=== PATIENT | female | born 1955 | race American Indian/Alaskan Native ===

== ENCOUNTER 2018-10-04 14:37 | Outpatient (CLI) | payer BC ==
--- NOTE | 2018-10-04 23:45 | XRay Report ---
PROCEDURE: XR CHEST ROUTINE 2V TECHNIQUE: PA and lateral chest radiographs were obtained. HISTORY: PREVIOUS PPD COMPARISONS: None. FINDINGS: Heart: Normal. Mediastinum/Vessels: Normal. Lungs/Pleural space: Normal. Bony thorax: No acute osseous abnormality. IMPRESSION: Normal examination. This document is electronically signed by Wandy Mendoza DO., October 04 2018 11:43:04 PM ET
== END 2018-10-04 14:38 | disposition home or self-care (01) ==
LOC: XRAY 14:37
PROVIDERS: ATTEND Internal Medicine
DX: R76.11 Nonspecific reaction to tuberculin skin test without active tuberculosis (principal)
CPT/HCPCS: 71046

== ENCOUNTER 2021-07-18 09:39 | Outpatient (CLI) | payer OTHER ==
--- NOTE | 2021-07-18 10:14 | XRay Report ---
CHEST 2 VIEWS INDICATION: SHORT OF BREATH, HYPERTENSION, DECREASED BREATH SOUND IN RT LUNG. COMPARISON: 10/04/2018 FINDINGS: Support devices: None. Heart: Mild cardiomegaly has developed. Lungs/pleura: Mild pulmonary venous congestion and moderate right pleural effusion compresses the rig ht lung base. No convincing pneumonia or pneumothorax. Additional findings: None. IMPRESSION: Mild CHF which appears to be new since 09/25/2018 exam. Signer Name: Antony Tao Jr, MD Signed: 07/18/2021 10:09 AM Workstation Name: [id number]
== END 2021-07-18 09:40 | disposition home or self-care (01) ==
LOC: XRAY 09:39
PROVIDERS: ATTEND Internal Medicine
DX: I11.0 Hypertensive heart disease with heart failure (principal); I50.9 Heart failure, unspecified
CPT/HCPCS: 71046

== ENCOUNTER 2021-08-18 10:54 | Outpatient (CLI) | payer OTHER ==
--- NOTE | 2021-08-18 14:53 | Ultrasound Report ---
ULTRASOUND THYROID INDICATION / CLINICAL INFORMATION: E05.20 GOITER. COMPARISON: None available. FINDINGS: RIGHT LOBE: Size (cm) = 6.6 x 2.9 x 2.9 cm. LEFT LOBE: Size (cm) = 7.4 x 2.7 x 3.2 cm. ISTHMUS: Thickness (cm) = 0.7 cm. APPEARANCE: Diffusely heterogeneous and hypervascular. SMALL NODULES < 1 cm: None. NODULES >= 1 cm or SUSPICIOUS FEATURES (up to 4): None. LYMPH NODES: No abnormal lymph nodes. PARATHYROID GLANDS: No abnormal parathyroid glands. ADDITIONAL FINDINGS: None. IMPRESSION: 1. Enlarged, diffusely heterogeneous and hypervascular thyroid bilaterally. 2. No suspicious thyroid nodules. ACR TI-RADS Thyroid Nodule Recommendations TI-RADS 1 (0 pts) -- BENIGN. - No Fine Needle Aspirate biopsy (FNA) or follow-up. TI-RADS 2 (1-2 pts) -- NOT SUSPICIOUS. - No FNA or follow-up. TI-RADS 3 (3 pts) -- MILDLY SUSPICIOUS. - >= 2.5 cm: FNA. - 1.5-2.4 cm: Follow up at 1, 3, 5 years. - < 1.5 cm: No follow up. TI-RADS 4 (4-6 pts) -- MODERATELY SUSPICIOUS. - >= 1.5 cm: FNA. - 1.0-1.4 cm: Follow up at 1, 2, 3, 5 years. - < 1.0 cm: No follow up. TI-RADS 5 (7+ pts) -- HIGHLY SUSPICIOUS. - >= 1.0 cm: FNA. - 0.5-0.9 cm: Follow annually for 5 years. - 0.5 cm: No follow up. REFERENCE: ACR Thyroid Imaging, Reporting and Data System (TI-RADS): White Paper of the ACR TI-RADS C ommittee. J AM Lisa Radiol 2017;14:587-595. NOTE: Nodules < 1 cm do not typically require follow-up or FNA unless there are suspicious features. NOTE: Nodule size maximum dimension determines whether a given lesion should be biopsied or followed. NOTE: If multiple nodules meet criteria for FNA, only the two (2) most suspicious nodules should be b iopsied. In addition, FNA of any suspicious cervical nodes should be biopsied. NOTE: Predominantly Cystic nodules and Spongiform nodules, composed predominantly (>50%) of small cys tic spaces, are considered benign (TI-RADS 1) regardless of other criteria. Scribed by: Josi العلي RDMS, RVT Scribed: 08/18/2021 1:40 PM I have reviewed the images, agree with this report, and edited this report as needed. Signer Name: Jacinto Wetzel MD Signed: 08/18/2021 2:49 PM Workstation Name: [id number]
== END 2021-08-18 10:55 | disposition home or self-care (01) ==
LOC: US 10:54
PROVIDERS: ATTEND Internal Medicine
DX: E05.20 Thyrotoxicosis with toxic multinodular goiter without thyrotoxic crisis or storm (principal)
CPT/HCPCS: 76536

== ENCOUNTER 2021-09-03 15:56 | Inpatient (IN) | payer OTHER ==
--- NOTE | 2021-09-03 17:35 | Emergency Department Report ---
HPI - General Chief Complaint: Dyspnea/Respdistress Time Seen by Provider: 09/03/21 17:15 - HPI HPI: MSE 3 The patient is a 66-year-old female present with a chief complaint of shortness of breath. The patient states for the past 2 to 3 weeks she is had worsening bilateral lower extremity pitting edema. Patient admits to dyspnea on exertion and 4 pillow orthopnea for the past 1-2 weeks. The patient states earlier today she had 10 to 15 minutes of substernal chest heaviness but has since resolved. Patient admits an occasional cough that is nonproductive. Patient denies history of fever. Patient states she has been vaccinated against Covid r eceiving 3 doses. The patient states she is never had a stress test or cardiac catheterization ED Past Medical Hx - Past Medical History Hx Hypertension: Yes Additional medical history: Hyperthyroidism - Surgical History Additional Surgical History: Abdominal abscess I&D - Family History Family history: no significant - Social History Smoking Status: Current Some Day Smoker (1/7 pack/day) Substance Use Type: None (Denies illicit drug use) ED Review of Systems ROS: Stated complaint: SOB Other details as noted in HPI Constitutional: denies: fever Eyes: denies: eye pain ENT: denies: throat pain Respiratory: cough, orthopnea, shortness of breath, SOB with exertion Cardiovascular: chest pain Endocrine: no symptoms reported Gastrointestinal: denies: abdominal pain Genitourinary: denies: dysuria Musculoskeletal: denies: back pain Skin: other (Bilateral lower extremity edema) Neurological: denies: headache Physical Exam - Physical Exam Vital Signs: Vital Signs 09/03/21 16:06 Temperature 98.1 F Pulse Rate 92 H Respiratory 20 Rate Blood Pressure 147/99 O2 Sat by Pulse 97 Oximetry Physical Exam: GENERAL: The patient is well-developed well-nourished female lying on stretcher not appearing to be in acute distress. [] HEENT: Normocephalic. Atraumatic. Extraocular motions are intact. Patient has moist mucous membranes. NECK: Supple. Trachea midline CHEST/LUNGS: Clear to auscultation. There is no respiratory distress noted. Faint crackles left base HEART/CARDIOVASCULAR: Regular. There is no tachycardia. There is no gallop rub or murmur. ABDOMEN: Abdomen is soft, nontender. Patient has normal bowel sounds. There is no abdominal distention. SKIN: There is no rash. There is 2-3+ bilateral lower extremity pitting edema. There is no diaphoresis. NEURO: The patient is awake, alert, and oriented. The patient is cooperative. The patient has no focal neurologic deficits. The patient has normal speech. GCS 15 MUSCULOSKELETAL: There is no evidence of acute injury. ED Course Vital Signs 09/03/21 16:06 Temperature 98.1 F Pulse Rate 92 H Respiratory 20 Rate Blood Pressure 147/99 O2 Sat by Pulse 97 Oximetry ED Medical Decision Making - Lab Data Result diagrams: 09/03/21 17:33 09/03/21 17:33 Laboratory Tests 09/03/21 09/03/21 09/03/21 17:33 17:33 17:33 WBC 5.5 RBC 5.57 H Hgb 15.5 H Hct 48.7 H MCV 87 MCH 28 MCHC 32 RDW 20.2 H Plt Count 130 L Lymph % (Auto) 36.9 H [place] % (Auto) 7.9 H Eos % (Auto) 1.6 Baso % (Auto) 1.2 Lymph # (Auto) 2.0 [place] # (Auto) 0.4 Eos # (Auto) 0.1 Baso # (Auto) 0.1 Seg Neutrophils % 52.4 Seg Neutrophils # 2.9 PT 14.2 INR 0.99 Sodium 135 L Potassium 4.0 Chloride 100.1 Carbon Dioxide 21 L Anion Gap 18 BUN 21 H Creatinine 1.0 Estimated GFR > 60 BUN/Creatinine Ratio 21 Glucose 96 Calcium 9.0 Magnesium 2.30 Total Bilirubin 1.10 AST 37 ALT 23 Alkaline Phosphatase 244 H Total Creatine Kinase 201 H CK-MB (CK-2) 3.5 CK-MB (CK-2) Rel Index 1.7 Troponin T < 0.010 NT-Pro-B Natriuret Pep 4285 H Total Protein 7.4 Albumin 3.9 Albumin/Globulin Ratio 1.1 - EKG Data -: EKG Interpreted by Me EKG shows normal: sinus rhythm Rate: normal (75 bpm) - EKG Data When compared to previous EKG there are: previous EKG unavailable Interpretation: nonspecific ST-T wave danii - Radiology Data Radiology results: report reviewed (Chest x-ray), image reviewed (Chest x-ray) interpreted by me: Chest x-ray-right pleural effusion. No pneumothorax. [facility] [address] [place] [address] XRay Report Signed Patient: GALILEO HORNE MR#: [id number] : 1955 Acct:[id number] Age/Sex: 66 / F ADM Date: 09/03/21 Loc: ED Attending Dr: Ordering Physician: BERTRAM IRVIN MD Date of Service: 09/03/21 Procedure(s): XR chest routine 2V Accession Number(s): [id number] cc: BERTRAM IRVIN MD Fluoro Time In Minutes: CHEST 2 VIEWS INDICATION / CLINICAL INFORMATION: Dyspnea on exertion, orthopnea. COMPARISON: 07/18/2021 FINDINGS: SUPPORT DEVICES: None. HEART / MEDIASTINUM: Cardiomegaly LUNGS / PLEURA: There is mild pulmonary vascular indistinctness. No pneumothorax. There is elevation the right hemidiaphragm relation to the left. There is accessory fissure along the right lung base. ADDITIONAL FINDINGS: No significant additional findings. IMPRESSION: 1. Mild pulmonary vascular indistinctness suggesting pulmonary edema. Signer Name: Arthur Finley DO Signed: 09/03/2021 6:27 PM Workstation Name: [id number] Transcribed By: YOUNG Dictated By: ARTHUR FINLEY DO Electronically Authenticated By: ARTHUR FINLEY DO Signed Date/Time: 09/03/211826 DD/ 25 TD/TT: Print Cancel - Differential Diagnosis CHF, ACS, pericarditis, myocarditis Critical care attestation.: If time is entered above; I have spent that time in minutes in the direct care of this critically ill patient, excluding procedure time. ED Disposition Clinical Impression: New onset of congestive heart failure, Dyspnea on exertion Disposition: ADMITTED INPATIENT Is pt being admited?: Yes Does the pt Need Aspirin: Yes Condition: Stable Time of Disposition: 19:16 (Hospitalist called (Dr. Gallego)) Heart Score - HEART Score History: Moderately suspicious EKG: Non-specific Age: > 65 Risk factors: 1-2 risk factors Troponin: < normal limit HEART Score: 5 - EKG Read Time Time EKG Completed: 18:59 EKG Read Time: 19:00
[2021-09-03 18:13] LABS: Basophils # (Auto) 0.1 K/mm3 (0.0-0.1); Basophils % (Auto) 1.2 % (0.0-1.8); Eosinophils # (Auto) 0.1 K/mm3 (0.0-0.4); Eosinophils % (Auto) 1.6 % (0.0-4.3); Hematocrit 48.7 % (30.3-42.9); Hemoglobin 15.5 gm/dl (10.1-14.3); Lymphocytes % (Auto) 36.9 % (13.4-35.0); Mean Corpuscular HGB Conc 32 % (30-34); Mean Corpuscular Volume 87 fl (79-97); Monocytes # (Auto) 0.4 K/mm3 (0.0-0.8); Monocytes % (Auto) 7.9 % (0.0-7.3); Platelet Count 130 K/mm3 (140-440); Red Blood Count 5.57 M/mm3 (3.65-5.03); Red Cell Distribution Width 20.2 % (13.2-15.2)
[2021-09-03 18:22] LABS: INR 0.99 (0.87-1.13)
--- NOTE | 2021-09-03 18:32 | XRay Report ---
CHEST 2 VIEWS INDICATION / CLINICAL INFORMATION: Dyspnea on exertion, orthopnea. COMPARISON: 07/18/2021 FINDINGS: SUPPORT DEVICES: None. HEART / MEDIASTINUM: Cardiomegaly LUNGS / PLEURA: There is mild pulmonary vascular indistinctness. No pneumothorax. There is elevation the right hemidiaphragm relation to the left. There is accessory fissure along the right lung base. ADDITIONAL FINDINGS: No significant additional findings. IMPRESSION: 1. Mild pulmonary vascular indistinctness suggesting pulmonary edema. Signer Name: Arthur Green DO Signed: 09/03/2021 6:27 PM Workstation Name: [id number]
[2021-09-03 18:45] LABS: Alanine Aminotransferase 23 units/L (7-56); Albumin 3.9 g/dL (3.9-5); BUN/Creatinine Ratio 21; Blood Urea Nitrogen 21 mg/dL (7-17); Creatine Kinase MB 3.5 ng/mL (0.0-4.0); Hemolysis Index 24
[2021-09-03] MEDS ORDERED: FUROSEMIDE 40 MG/4 ML INJ IV ONE (18:48)
[2021-09-03 18:57] LABS: Free T4 (Free Thyroxine) 0.1 ng/dL (0.76-1.46)
--- NOTE | 2021-09-03 19:51 | History and Physical Report ---
History of Present Illness Date of examination: 09/03/21 Date of admission: September 03, 2021 Chief complaint: Shortness of breath and bilateral lower leg extremity edema for 2 to 3 weeks. History of present illness: 66-year-old -[place] female with history of hypertension and hypothyroidism comes to the emergency room for increasing shortness of breath and bilateral lower extremity edema for the last 2 to 3 weeks. Patient admits to dyspnea on minimal exertion. Also has orthopnea. Also swelling of both lower extremities. This has been going on for last 2 to 3 weeks. Patient does not have any history of congestive heart failure. No paroxysmal nocturnal dyspnea. No chest pain. Patient never had a stress test or cardiac cath in the past. No fever or chills. Patient has been vaccinated against COVID and received all 3 doses. Patient has occasional cough which is nonproductive. - Past Medical History --Hypertension: Yes --Additional medical history: Hyperthyroidism - Surgical History --Additional Surgical History: Abdominal abscess I&D - Family History --Family history: no significant - Social History --Smoking Status: Current Some Day Smoker (1/7 pack/day) --Substance Use Type: None (Denies illicit drug use) --Review of Systems --ROS: ---Stated complaint: SOB ---Other details as noted in HPI --Constitutional: denies: fever --Eyes: denies: eye pain --ENT: denies: throat pain --Respiratory: cough, orthopnea, shortness of breath, SOB with exertion --Cardiovascular: chest pain --Endocrine: no symptoms reported --Gastrointestinal: denies: abdominal pain --Genitourinary: denies: dysuria --Musculoskeletal: denies: back pain --Skin: other (Bilateral lower extremity edema) --Neurological: denies: headache Medications and Allergies Allergies Allergy/AdvReac Type Severity Reaction Status Date / Time No Known Allergies Allergy Verified 09/03/21 20:07 Exam - Constitutional Vitals: Temp Pulse Resp BP Pulse Ox 98.1 F 92 H 20 147/99 97 09/03/21 16:06 09/03/21 16:06 09/03/21 16:06 09/03/21 16:06 09/03/21 16:06 General appearance: Present: no acute distress, well-nourished - EENT Eyes: Present: PERRL ENT: hearing intact, clear oral mucosa - Neck Neck: Present: supple, normal ROM - Respiratory Respiratory effort: normal Respiratory: bilateral: CTA, rales (Scattered) - Cardiovascular Heart rate: 78 Rhythm: regular Heart Sounds: Present: S1 & S2. Absent: rub, click - Extremities Extremities: pulses symmetrical, Full ROM Extremity abnormal: edema (3+ pedal edema) Peripheral Pulses: within normal limits - Abdominal General gastrointestinal: Present: soft, non-tender, non-distended, normal bowel sounds Female genitourinary: Present: normal - Rectal Rectal Exam: deferred - Integumentary Integumentary: Present: clear, warm, dry - Musculoskeletal Musculoskeletal: gait normal, strength equal bilaterally - Psychiatric Psychiatric: appropriate mood/affect, intact judgment & insight - Neurologic Neurologic: CNII-XII intact, moves all extremities HEART Score - HEART Score History: Moderately suspicious EKG: Non-specific Age: > 65 Risk factors: 1-2 risk factors Troponin: Troponin T < 0.010 ng/mL (0.00-0.029) 09/03/21 17:33 Troponin: < normal limit HEART Score: 5 - Critical Actions Critical Actions: 4-6 pts:12-16.6% risk of adverse cardiac event. Should be admitted Results - Labs CBC & Chem 7: 09/03/21 17:33 09/03/21 17:33 Labs: Laboratory Last Values WBC 5.5 K/mm3 (4.5-11.0) 09/03/21 17: RBC 5.57 M/mm3 (3.65-5.03) H 09/03/21 17:33 Hgb 15.5 gm/dl (10.1-14.3) H 09/03/21 17:33 Hct 48.7 % (30.3-42.9) H 09/03/21 17:33 MCV 87 fl (79-97) 09/03/21 17:33 MCH 28 pg (28-32) 09/03/21 17: MCHC 32 % (30-34) 09/03/21 17:33 RDW 20.2 % (13.2-15.2) H 09/03/21 17:33 Plt Count 130 K/mm3 (140-440) L 09/03/21 17:33 Lymph % (Auto) 36.9 % (13.4-35.0) H 09/03/21 17:33 [place] % (Auto) 7.9 % (0.0-7.3) H 09/03/21 17:33 Eos % (Auto) 1.6 % (0.0-4.3) 09/03/21 17:33 Baso % (Auto) 1.2 % (0.0-1.8) 09/03/21 17:33 Lymph # (Auto) 2.0 K/mm3 (1.2-5.4) 09/03/21 17:33 [place] # (Auto) 0.4 K/mm3 (0.0-0.8) 09/03/21 17: Eos # (Auto) 0.1 K/mm3 (0.0-0.4) 09/03/21 17: Baso # (Auto) 0.1 K/mm3 (0.0-0.1) 09/03/21 17:33 Seg Neutrophils % 52.4 % (40.0-70.0) 09/03/21 17: Seg Neutrophils # 2.9 K/mm3 (1.8-7.7) 09/03/21 17:33 PT 14.2 Sec. (12.2-14.9) 09/03/21 17:33 INR 0.99 (0.87-1.13) 09/03/21 17:33 Sodium 135 mmol/L (137-145) L 09/03/21 17:33 Potassium 4.0 mmol/L (3.6-5.0) 09/03/21 17: Chloride 100.1 mmol/L (98-107) 09/03/21 17:33 Carbon Dioxide 21 mmol/L (22-30) L 09/03/21 17:33 Anion Gap 18 mmol/L 09/03/21 17:33 BUN 21 mg/dL (7-17) H 09/03/21 17:33 Creatinine 1.0 mg/dL (0.6-1.2) 09/03/21 17:33 Estimated GFR > 60 ml/min 09/03/21 17:33 BUN/Creatinine Ratio 21 % 09/03/21 17:33 Glucose 96 mg/dL (65-100) 09/03/21 17:33 Calcium 9.0 mg/dL (8.4-10.2) 09/03/21 17:33 Magnesium 2.30 mg/dL (1.7-2.3) 09/03/21 17:33 Total Bilirubin 1.10 mg/dL (0.1-1.2) 09/03/21 17:33 AST 37 units/L (5-40) 09/03/21 17:33 ALT 23 units/L (7-56) 09/03/21 17:33 Alkaline Phosphatase 244 units/L (35-129) H 09/03/21 17:33 Total Creatine Kinase 201 units/L (30-135) H 09/03/21 17:33 CK-MB (CK-2) 3.5 ng/mL (0.0-4.0) 09/03/21 17: CK-MB (CK-2) Rel Index 1.7 (0-4) 09/03/21 17:33 Troponin T < 0.010 ng/mL (0.00-0.029) 09/03/21 17:33 NT-Pro-B Natriuret Pep 4285 pg/mL (0-900) H 09/03/21 17:33 Total Protein 7.4 g/dL (6.3-8.2) 09/03/21 17:33 Albumin 3.9 g/dL (3.9-5) 09/03/21 17:33 Albumin/Globulin Ratio 1.1 % 09/03/21 17:33 TSH 26.150 mlU/mL (0.270-4.200) H 09/03/21 17:33 Free T4 0.10 ng/dL (0.76-1.46) L 09/03/21 17:33 Short CBC 09/03/21 Range/Units 17:33 WBC 5.5 (4.5-11.0) K/mm3 Hgb 15.5 H (10.1-14.3) gm/dl Hct 48.7 H (30.3-42.9) % Plt Count 130 L (140-440) K/mm3 BMP 09/03/21 17:33 Sodium 135 L Potassium 4.0 Chloride 100.1 Carbon Dioxide 21 L BUN 21 H Creatinine 1.0 Glucose 96 Calcium 9.0 Cardiac Enzymes 09/03/21 Range/Units 17:33 Total Creatine Kinase 201 H (30-135) units/L CK-MB (CK-2) 3.5 (0.0-4.0) ng/mL Troponin T < 0.010 (0.00-0.029) ng/mL Liver Function 09/03/21 Range/Units 17:33 Total Bilirubin 1.10 (0.1-1.2) mg/dL AST 37 (5-40) units/L ALT 23 (7-56) units/L Alkaline Phosphatase 244 H (35-129) units/L Albumin 3.9 (3.9-5) g/dL - Imaging and Cardiology EKG: report reviewed Chest x-ray: report reviewed Imaging and Cardiology: - EKG Data -: EKG Interpreted by Me --EKG shows normal: sinus rhythm --Rate: normal (75 bpm) - EKG Data --When compared to previous EKG there are: previous EKG unavailable --Interpretation: nonspecific ST-T wave changes - Radiology Data --Radiology results: report reviewed (Chest x-ray), image reviewed (Chest x-ray) --Chest x-ray-right pleural effusion. No pneumothorax. Assessment and Plan Advance Directives: Yes (Full code) VTE prophylaxis?: Chemical Plan of care discussed with patient/family: Yes - Patient Problems (1) Acute exacerbation of CHF (congestive heart failure) Current Visit: Yes Status: Acute Qualifiers: Heart failure type: combined systolic and diastolic Qualified Code(s): I50.43 - Acute on chronic combined systolic (congestive) and diastolic (congestive) heart failure Plan to address problem: Patient has new onset CHF. BNP is 4285 Chest x-ray shows mild right pleural effusion and pulmonary vascular congestion. Clinical picture consistent with new onset CHF IV Lasix and potassium Daily weights Daily intake output Echocardiogram for ejection fraction and valve function Cardiology consult requested (2) HTN (hypertension) Current Visit: Yes Status: Chronic Qualifiers: Hypertension type: primary hypertension Qualified Code(s): I10 - Essential (primary) hypertension Plan to address problem: Losartan at 50 mg daily (3) Hypothyroidism Current Visit: Yes Status: Chronic Qualifiers: Hypothyroidism type: acquired Qualified Code(s): E03.9 - Hypothyroidism, unspecified Plan to address problem: Patient states that she has hypothyroidism and is on methimazole once a day Labs suggest that patient has hypothyroidism TSH is 26.15 Free T4 is 0.10 Patient initiated on Synthroid at 100 mcg/day Primary team to discuss her diagnosis of hypothyroidism tomorrow Patient does not have hyperthyroidism (4) Hyponatremia Current Visit: Yes Status: Acute Plan to address problem: Very mild at 135 No intervention at this point (5) DVT prophylaxis Current Visit: Yes Status: Acute Plan to address problem: On anticoagulation and GI prophylaxis (6) Advance care planning Current Visit: Yes Status: Acute Plan to address problem: Disease education conducted, care plan discussed, diagnosis discussed, prognosis discussed. Patient is full code. Patient acknowledges understanding and agreement with care plan. +30 minutes.
[2021-09-03] MEDS ORDERED: MORPHINE 2 MG/1 ML INJ IV PRN (20:02)
[2021-09-03] MEDS ORDERED: ONDANSETRON 4 MG/2 ML INJ IV PRN (20:02)
[2021-09-03] MEDS ORDERED: ACETAMINOPHEN 325 MG TAB PO PRN (20:02)
[2021-09-03] MEDS ORDERED: METOCLOPRAMIDE 10 MG/2 ML INJ IV PRN (20:02)
[2021-09-03] MEDS: POTASSIUM CHLORIDE ER 20 MEQ TAB PO SCH (20:54)
[2021-09-03] MEDS: HEPARIN 5,000 UNIT/1 ML VIAL SUB-Q SCH (22:00)
[2021-09-03] MEDS: FAMOTIDINE 20 MG TAB PO SCH (23:23)
[2021-09-04 05:51] LABS: Basophils # (Auto) 0.1 K/mm3 (0.0-0.1); Basophils % (Auto) 1.2 % (0.0-1.8); Eosinophils # (Auto) 0.2 K/mm3 (0.0-0.4); Eosinophils % (Auto) 3.8 % (0.0-4.3); Hematocrit 48.6 % (30.3-42.9); Hemoglobin 15.6 gm/dl (10.1-14.3); Lymphocytes # (Auto) 1.8 K/mm3 (1.2-5.4); Lymphocytes % (Auto) 38.1 % (13.4-35.0); Mean Corpuscular HGB Conc 32 % (30-34); Mean Corpuscular Volume 87 fl (79-97); Monocytes # (Auto) 0.7 K/mm3 (0.0-0.8); Monocytes % (Auto) 14.4 % (0.0-7.3); Red Blood Count 5.57 M/mm3 (3.65-5.03); Red Cell Distribution Width 19.9 % (13.2-15.2)
[2021-09-04 06:17] LABS: Albumin 3.7 g/dL (3.9-5); Calcium 8.5 mg/dL (8.4-10.2); Platelet Count 125 K/mm3 (140-440)
[2021-09-04] MEDS: FUROSEMIDE 40 MG/4 ML INJ IV SCH ×3 (06:35→17:31)
[2021-09-04] MEDS: LEVOTHYROXINE 100 MCG TAB PO SCH (07:41)
--- NOTE | 2021-09-04 09:39 | Electrocardiograph Report ---
[facility] Test Date: 2021-09-03 Test Time: 18:59:07 Pat Name: GALILEO HORNE Department: Room: A469 1 Gender: F Manager Technical Services: Dc MOORE RN : 1955 Requested By: BERTRAM IRVIN Order Number: [id number] Reading MD: Rin Pozo Measurements Intervals [place] Rate: 75 P: 180 HI: 218 QRS: -63 QRSD: 105 T: QT: 435 QTc: 488 Interpretive Statements Sinus or ectopic atrial rhythm Borderline prolonged HI interval Left atrial enlargement Left anterior fascicular block No previous ECG available for comparison Electronically Signed On 09-04-2021 9:39:11 EST by Rin Pozo
--- NOTE | 2021-09-04 09:55 | Progress Note ---
Assessment and Plan Assessment and plan: -- Acute versus acute on chronic CHF (congestive heart failure) Current Visit: Yes Status: Acute Unknown ejection fraction Patient has elevated BNP chest x-ray pulmonary edema Continue diuretics, low-dose beta-blockers Input output monitoring, low-sodium diet Fluid restriction Echocardiogram for LV function ejection fraction Cardiology consulted --History of HTN (hypertension) moderate control Current Visit: Yes Status: Chronic Continue losartan at 50 mg daily As needed oral hydralazine --H/o hyperthyroidism on methimazole Current Visit: Yes Status: Chronic However thyroid functions tests consistent with hypothyroidism Probably due to overcorrection Hold methimazole, closely monitor --Hypothyroidism Current Visit: Yes Status: Chronic Patient has history of hyperthyroidism on methimazole Probably overcorrection, will hold methimazole and closely monitor Patient needs to see labor/excavator upon discharge --Thrombocytopenia; Unknown etiology, closely monitor platelets Monitor for any evidence of bleeding -- Hyponatremia mild Current Visit: Yes Status: Acute Present on admission, resolved Sodium 135 -139 Closely monitor electrolytes --DVT prophylaxis Current Visit: Yes Status: Acute Subcu heparin --Advance care planning /additional 30 minutes Current Visit: Yes Status: Acute Disease education conducted, care plan discussed, diagnosis discussed, prognosis discussed. Thyroid function tests discussed with the patient in detail Advised her to see labor/excavator upon discharge Endocrinology service not available in the hospital Patient is full code. Patient acknowledges understanding and agreement with care plan. +30 minutes. Closely monitor the patient and adjust management as needed Plan of care reviewed with the patient and her nurse History Interval history: I seen and examined the patient at the bedside Patient's chart and medications reviewed Patient was admitted with worsening shortness of breath and worsening leg edema Time of my evaluation patient feels slightly short of breath Patient is slightly frustrated because she wants to go home to her pet dog lives alone Vital signs reviewed Hospitalist Physical - Constitutional Vitals: Temp Pulse Resp BP Pulse Ox 97.9 F 74 18 116/72 92 09/04/21 08:17 09/04/21 08:17 09/04/21 08:17 09/04/21 08:17 09/04/21 08:17 General appearance: Present: no acute distress, well-nourished - EENT Eyes: Present: PERRL, EOM intact - Neck Neck: Present: supple, normal ROM - Respiratory Respiratory: bilateral: diminished, rales, rhonchi, negative: wheezing - Cardiovascular Rhythm: regular Heart Sounds: Present: S1 & S2 - Extremities Extremities: no ischemia Extremity abnormal: edema (Bilateral edema) - Abdominal General gastrointestinal: soft, non-tender, non-distended, normal bowel sounds - Integumentary Integumentary: Present: clear - Psychiatric Psychiatric: appropriate mood/affect - Neurologic Neurologic: moves all extremities HEART Score - HEART Score EKG: Non-specific Age: > 65 Risk factors: 1-2 risk factors Troponin: Troponin T < 0.010 ng/mL (0.00-0.029) 09/03/21 17:33 Troponin: < normal limit - Critical Actions Critical Actions: 4-6 pts:12-16.6% risk of adverse cardiac event. Should be admitted Results - Labs CBC & Chem 7: 09/04/21 05:24 09/04/21 05:24 Labs: Laboratory Last Values WBC 4.8 K/mm3 (4.5-11.0) 09/04/21 05:24 RBC 5.57 M/mm3 (3.65-5.03) H 09/04/21 05:24 Hgb 15.6 gm/dl (10.1-14.3) H 09/04/21 05:24 Hct 48.6 % (30.3-42.9) H 09/04/21 05:24 MCV 87 fl (79-97) 09/04/21 05:24 MCH 28 pg (28-32) 09/04/21 05:24 MCHC 32 % (30-34) 09/04/21 05:24 RDW 19.9 % (13.2-15.2) H 09/04/21 05:24 Plt Count 125 K/mm3 (140-440) L 09/04/21 05:24 Lymph % (Auto) 38.1 % (13.4-35.0) H 09/04/21 05:24 [place] % (Auto) 14.4 % (0.0-7.3) H 09/04/21 05:24 Eos % (Auto) 3.8 % (0.0-4.3) 09/04/21 05:24 Baso % (Auto) 1.2 % (0.0-1.8) 09/04/21 05:24 Lymph # (Auto) 1.8 K/mm3 (1.2-5.4) 09/04/21 05:24 [place] # (Auto) 0.7 K/mm3 (0.0-0.8) 09/04/21 05:24 Eos # (Auto) 0.2 K/mm3 (0.0-0.4) 09/04/21 05:24 Baso # (Auto) 0.1 K/mm3 (0.0-0.1) 09/04/21 05:24 Seg Neutrophils % 42.5 % (40.0-70.0) 09/04/21 05:24 Seg Neutrophils # 2.0 K/mm3 (1.8-7.7) 09/04/21 05:24 PT 14.2 Sec. (12.2-14.9) 09/03/21 17:33 INR 0.99 (0.87-1.13) 09/03/21 17:33 Sodium 139 mmol/L (137-145) 09/04/21 05:24 Potassium 4.3 mmol/L (3.6-5.0) 09/04/21 05:24 Chloride 100.9 mmol/L (98-107) 09/04/21 05:24 Carbon Dioxide 26 mmol/L (22-30) 09/04/21 05:24 Anion Gap 16 mmol/L 09/04/21 05:24 BUN 23 mg/dL (7-17) H 09/04/21 05:24 Creatinine 1.1 mg/dL (0.6-1.2) 09/04/21 05:24 Estimated GFR 60 ml/min 09/04/21 05:24 BUN/Creatinine Ratio 21 % 09/04/21 05:24 Glucose 65 mg/dL (65-100) 09/04/21 05:24 Calcium 8.5 mg/dL (8.4-10.2) 09/04/21 05:24 Magnesium 2.30 mg/dL (1.7-2.3) 09/03/21 17:33 Total Bilirubin 1.20 mg/dL (0.1-1.2) 09/04/21 05:24 AST 32 units/L (5-40) 09/04/21 05:24 ALT 21 units/L (7-56) 09/04/21 05:24 Alkaline Phosphatase 234 units/L (35-129) H 09/04/21 05:24 Total Creatine Kinase 201 units/L (30-135) H 09/03/21 17:33 CK-MB (CK-2) 3.5 ng/mL (0.0-4.0) 09/03/21 17:33 CK-MB (CK-2) Rel Index 1.7 (0-4) 09/03/21 17:33 Troponin T < 0.010 ng/mL (0.00-0.029) 09/03/21 17:33 NT-Pro-B Natriuret Pep 4285 pg/mL (0-900) H 09/03/21 17:33 Total Protein 6.9 g/dL (6.3-8.2) 09/04/21 05:24 Albumin 3.7 g/dL (3.9-5) L 09/04/21 05:24 Albumin/Globulin Ratio 1.2 % 09/04/21 05:24 TSH 26.150 mlU/mL (0.270-4.200) H 09/03/21 17:33 Free T4 0.10 ng/dL (0.76-1.46) L 09/03/21 17:33 Thakkar/IV: Voiding Method Toilet Active Medications - Current Medications Current Medications: Generic Name Dose Route Start Last Admin Trade Name Freq PRN Reason Stop Dose Admin Acetaminophen 650 mg 09/03/21 20:02 Acetaminophen 325 Mg Tab PO Q4H PRN Pain MILD(1-3)/Fever >100.5/EARLY Famotidine 20 mg 09/03/21 22:00 09/03/21 23:23 Famotidine 20 Mg Tab PO 20 mg BID BISI Administration Furosemide 40 mg 09/04/21 06:00 09/04/21 06:35 Furosemide 40 Mg/4 Ml Inj IV 40 mg 0600,1800 BISI Administration Heparin Sodium (Porcine) 5,000 unit 09/03/21 22:00 09/03/21 22:00 Heparin 5,000 Unit/1 Ml Vial SUB-Q 5,000 unit Q12HR BISI Administration Levothyroxine Sodium 100 mcg 09/04/21 08:00 09/04/21 07:41 Levothyroxine 100 Mcg Tab PO 100 mcg DAILY@0600 BISI Administration Losartan Potassium 50 mg 09/04/21 10:00 Losartan 50 Mg Tab PO QDAY BISI Metoclopramide HCl 10 mg 09/03/21 20:02 Metoclopramide 10 Mg/2 Ml Inj IV Q6H PRN Nausea And Vomiting Morphine Sulfate 2 mg 09/03/21 20:02 Morphine 2 Mg/1 Ml Inj IV Q4H PRN Pain, Moderate (4-6) Ondansetron HCl 4 mg 09/03/21 20:02 Ondansetron 4 Mg/2 Ml Inj IV Q8H PRN Nausea And Vomiting Oxycodone/Acetaminophen 1 tab 09/03/21 20:02 Oxycodone /Acetaminophen 5-325mg Tab PO Q6H PRN Pain, Moderate (4-6) Potassium Chloride 20 meq 09/03/21 21:00 09/03/21 20:54 Potassium Chloride Er 20 Meq Tab PO 20 meq Q12H BISI Administration Sodium Chloride 10 ml 09/03/21 22:00 09/03/21 23:24 Sodium Chloride 0.9% 10 Ml Flush Syringe IV 10 ml BID BISI Administration Sodium Chloride 10 ml 09/03/21 20:02 Sodium Chloride 0.9% 10 Ml Flush Syringe IV PRN PRN LINE FLUSH
[2021-09-04] MEDS: FAMOTIDINE 20 MG TAB PO SCH ×2 (10:49→23:25)
[2021-09-04] MEDS: LOSARTAN 50 MG TAB PO SCH (10:49)
[2021-09-04] MEDS: POTASSIUM CHLORIDE ER 20 MEQ TAB PO SCH ×2 (10:49→23:25)
[2021-09-04] MEDS: HEPARIN 5,000 UNIT/1 ML VIAL SUB-Q SCH ×2 (10:50→22:00)
--- NOTE | 2021-09-04 14:50 | Consultation ---
History of Present Illness Consult date: 09/04/21 Consult reason: shortness of breath History of present illness: Patient is a 60-year-old woman admitted to the hospital with 2 weeks of shortness of breath and bilateral lower extremity edema. She has no chest pain, no prior cardiac history or significant prior cardiac work-up. Her ECG shows a normal sinus rhythm, left axis deviation and poor R wave progression, but no acute ST or T wave changes. Chest x-ray is abnormal for a small to moderate sized right pleural effusion, but otherwise no interstitial edema. The cardiac silhouette is normal in size. The most significant finding on laboratory exam was an elevated TSH of 26, consistent with significant hypothyroidism. The patient gives a history of HYPERthyroidism, managed by her PCP over the past year with methimazole oral therapy. She did not have thyroid ablation. She states that her thyroid profile normalized on methimazole and the treatment was continued on to her current presentation. Comorbidities include chronic hypertension. Patient is currently comfortable on bedrest, no chest pain, no acute distress. She has 2+ bilateral nonpitting edema of the lower extremities. Past History Past Medical History: hypertension, other (Hyperthyroid disease) Medications and Allergies Allergies Allergy/AdvReac Type Severity Reaction Status Date / Time No Known Allergies Allergy Verified 09/03/21 20:07 Home Medications Medication Instructions Recorded Confirmed Last Taken Type Triamterene-Hctz 37.5-25 mg Cp 1 tab PO QDAY 09/04/21 09/04/21 Unknown History methIMAzole [Methimazole] 1 tab PO DAILY 09/04/21 09/04/21 Unknown History Active Meds: Active Medications Acetaminophen (Acetaminophen 325 Mg Tab) 650 mg PO Q4H PRN PRN Reason: Pain MILD(1-3)/Fever >100.5/EARLY Last Admin: 09/04/21 10:51 Dose: 650 mg Famotidine (Famotidine 20 Mg Tab) 20 mg PO BID [facility] Last Admin: 09/04/21 10:49 Dose: 20 mg Furosemide (Furosemide 40 Mg/4 Ml Inj) 40 mg IV 0600,1800 [facility] Last Admin: 09/04/21 06:35 Dose: 40 mg Heparin Sodium (Porcine) (Heparin 5,000 Unit/1 Ml Vial) 5,000 unit SUB-Q Q12HR [facility] Last Admin: 09/04/21 10:50 Dose: 5,000 unit Levothyroxine Sodium (Levothyroxine 100 Mcg Tab) 100 mcg PO DAILY@0600 [facility] Last Admin: 09/04/21 07:41 Dose: 100 mcg Losartan Potassium (Losartan 50 Mg Tab) 50 mg PO QDAY [facility] Last Admin: 09/04/21 10:49 Dose: 50 mg Metoclopramide HCl (Metoclopramide 10 Mg/2 Ml Inj) 10 mg IV Q6H PRN PRN Reason: Nausea And Vomiting Morphine Sulfate (Morphine 2 Mg/1 Ml Inj) 2 mg IV Q4H PRN PRN Reason: Pain, Moderate (4-6) Ondansetron HCl (Ondansetron 4 Mg/2 Ml Inj) 4 mg IV Q8H PRN PRN Reason: Nausea And Vomiting Oxycodone/Acetaminophen (Oxycodone /Acetaminophen 5-325mg Tab) 1 tab PO Q6H PRN PRN Reason: Pain, Moderate (4-6) Potassium Chloride (Potassium Chloride Er 20 Meq Tab) 20 meq PO Q12H [facility] Last Admin: 09/04/21 10:49 Dose: 20 meq Sodium Chloride (Sodium Chloride 0.9% 10 Ml Flush Syringe) 10 ml IV BID [facility] Last Admin: 09/04/21 10:50 Dose: 10 ml Sodium Chloride (Sodium Chloride 0.9% 10 Ml Flush Syringe) 10 ml IV PRN PRN PRN Reason: LINE FLUSH Review of Systems Cardiovascular: edema, shortness of breath, no chest pain, no orthopnea, no palpitations, no rapid/irregular heart beat, no syncope, no lightheadedness Physical Examination Vital Signs Temp Pulse Resp BP Pulse Ox 98.1 F 92 H 20 147/99 97 09/03/21 16:06 09/03/21 16:06 09/03/21 16:06 09/03/21 16:06 09/03/21 16:06 General appearance: no acute distress HEENT: Positive: PERRL Neck: Positive: neck supple Cardiac: Positive: Reg Rate and Rhythm Lungs: Positive: Decreased Breath Sounds Neuro: Positive: Grossly Intact Abdomen: Positive: Soft Female genitourinary: deferred Skin: Positive: Clear Extremities: Present: +2 Edema (Bilateral 2+ nonpitting edema of lower extremities) Results 09/04/21 05:24 09/04/21 05:24 Cardiac Enzymes 09/03/21 09/04/21 Range/Units 17:33 05:24 AST 37 32 (5-40) units/L CK-MB (CK-2) 3.5 (0.0-4.0) ng/mL Coagulation 09/03/21 Range/Units 17:33 PT 14.2 (12.2-14.9) Sec. INR 0.99 (0.87-1.13) CBC 09/03/21 09/04/21 Range/Units 17:33 05:24 WBC 5.5 4.8 (4.5-11.0) K/mm3 RBC 5.57 H 5.57 H (3.65-5.03) M/mm3 Hgb 15.5 H 15.6 H (10.1-14.3) gm/dl Hct 48.7 H 48.6 H (30.3-42.9) % Plt Count 130 L 125 L (140-440) K/mm3 Lymph # (Auto) 2.0 1.8 (1.2-5.4) K/mm3 [place] # (Auto) 0.4 0.7 (0.0-0.8) K/mm3 Eos # (Auto) 0.1 0.2 (0.0-0.4) K/mm3 Baso # (Auto) 0.1 0.1 (0.0-0.1) K/mm3 Comprehensive Metabolic Panel 09/03/21 09/04/21 Range/Units 17:33 05:24 Sodium 135 L 139 (137-145) mmol/L Potassium 4.0 4.3 (3.6-5.0) mmol/L Chloride 100.1 100.9 (98-107) mmol/L Carbon Dioxide 21 L 26 (22-30) mmol/L BUN 21 H 23 H (7-17) mg/dL Creatinine 1.0 1.1 (0.6-1.2) mg/dL Glucose 96 65 (65-100) mg/dL Calcium 9.0 8.5 (8.4-10.2) mg/dL AST 37 32 (5-40) units/L ALT 23 21 (7-56) units/L Alkaline Phosphatase 244 H 234 H (35-129) units/L Total Protein 7.4 6.9 (6.3-8.2) g/dL Albumin 3.9 3.7 L (3.9-5) g/dL EKG interpretations - Telemetry EKG Rhythm: Sinus Rhythm Assessment and Plan - Patient Problems (1) Non-pitting edema Current Visit: Yes Status: Acute Plan to address problem: Patient is bilateral nonpitting edema appears likely noncardiogenic, instead likely related to her thyroid disease. Patient was initially hyperthyroid and has been on methimazole treatment, current numbers show significant hypothyroid ism. Will defer to internal medicine and endocrine for management of her thyroid disease. We will order an echocardiogram for left ventricular function and valvular function assessment. (2) Pleural effusion, right Current Visit: Yes Status: Acute Plan to address problem: Patient has a right pleural effusion, etiology is uncertain. There is no interstitial edema and cardiac silhouette appears normal in size. I will defer management to pulmonary.
[2021-09-04] MEDS: oxyCODONE /ACETAMINOPHEN 5-325MG TAB PO PRN (23:31)
[2021-09-05] MEDS: FUROSEMIDE 40 MG/4 ML INJ IV SCH ×2 (05:53→19:51)
[2021-09-05] MEDS: LEVOTHYROXINE 100 MCG TAB PO SCH (05:53)
[2021-09-05] MEDS: oxyCODONE /ACETAMINOPHEN 5-325MG TAB PO PRN ×2 (05:53→21:57)
[2021-09-05 05:54] LABS: Calcium 8.4 mg/dL (8.4-10.2)
[2021-09-05] MEDS ORDERED: POTASSIUM CHLORIDE ER 20 MEQ TAB PO SCH (10:00)
[2021-09-05] MEDS: HEPARIN 5,000 UNIT/1 ML VIAL SUB-Q SCH ×2 (10:50→21:54)
--- NOTE | 2021-09-05 11:38 | Progress Note ---
Assessment and Plan - Patient Problems (1) Dilated cardiomyopathy Current Visit: Yes Status: Acute Plan to address problem: New finding of a severe four-chamber dilated cardiomyopathy, left ventricular ejection fraction 20 to 25%. (2) Non-pitting edema Current Visit: Yes Status: Acute Plan to address problem: Patient's echocardiogram shows a four-chamber dilated cardiomyopathy. We will commence guideline directed medical therapy for systolic left ventricular dysfunction. (3) Pleural effusion, right Current Visit: Yes Status: Acute Plan to address problem: Patient has a right pleural effusion, etiology is uncertain, may possibly be cardiogenic although unilateral. I will defer management to pulmonary to advise on mechanical drainage. Subjective Date of service: 09/05/21 Principal diagnosis: Edema Interval history: Patient had an echocardiogram today that showed a severe, four-chamber dilated cardiomyopathy. Chronicity of her cardiomyopathy is unknown. Objective Vital Signs Temp Pulse Resp BP Pulse Ox 09/05/21 08:34 97.9 F 72 16 117/72 93 09/05/21 04:46 98.6 F 68 16 112/76 96 09/04/21 22:44 98.2 F 60 18 109/68 96 09/04/21 22:00 93 09/04/21 19:35 97.9 F 69 18 102/56 93 09/04/21 15:55 98.7 F 72 18 115/67 95 09/04/21 12:00 65 97 - Physical Examination General: No Apparent Distress HEENT: Positive: PERRL Neck: Positive: neck supple Cardiac: Positive: Reg Rate and Rhythm Lungs: Positive: Decreased Breath Sounds Neuro: Positive: Grossly Intact Abdomen: Positive: Soft Skin: Positive: Clear Extremities: Present: +2 Edema (Bilateral 2+ nonpitting edema of lower extremities) - Labs and Meds Comprehensive Metabolic Panel 09/05/21 Range/Units 04:47 Sodium 141 (137-145) mmol/L Potassium 4.7 (3.6-5.0) mmol/L Chloride 101.1 (98-107) mmol/L Carbon Dioxide 28 (22-30) mmol/L BUN 27 H (7-17) mg/dL Creatinine 1.3 H (0.6-1.2) mg/dL Glucose 66 (65-100) mg/dL Calcium 8.4 (8.4-10.2) mg/dL - Imaging and Cardiology EKG: report reviewed
--- NOTE | 2021-09-05 12:43 | Progress Note ---
Assessment and Plan Assessment and plan: -- Acute systolic CHF (congestive heart failure) EF 20 to 25% Current Visit: Yes Status: Acute Echo [09/05/2021 ] EF 20 to 25% Patient has elevated BNP chest x-ray pulmonary edema Continue diuretics, low-dose beta-blockers Input output monitoring, low-sodium diet, Fluid restriction Cardiology following, recommend pulmonary consult --Right pleural effusion: New onset systolic congestive heart failure 20-25% EF Cardiology following, recommend pulmonary consult Discussed with on-call pulmonary Dr. Guan --History of HTN (hypertension) moderate control Current Visit: Yes Status: Chronic Continue losartan at 50 mg daily As needed oral hydralazine --H/o hyperthyroidism on methimazole Current Visit: Yes Status: Chronic However thyroid functions tests consistent with hypothyroidism Probably due to overcorrection Hold methimazole, closely monitor --Hypothyroidism Current Visit: Yes Status: Chronic Patient has history of hyperthyroidism on methimazole Probably overcorrection, will hold methimazole and closely monitor Patient needs to see mortgage loan processor upon discharge --Thrombocytopenia; Unknown etiology, closely monitor platelets Monitor for any evidence of bleeding -- Hyponatremia mild Current Visit: Yes Status: Acute Present on admission, resolved Sodium 135 -139 Closely monitor electrolytes --DVT prophylaxis Current Visit: Yes Status: Acute Subcu heparin --Advance care planning /additional 30 minutes Current Visit: Yes Status: Acute Disease education conducted, care plan discussed, diagnosis discussed, prognosis discussed. Thyroid function tests discussed with the patient in detail Advised her to see mortgage loan processor upon discharge Endocrinology service not available in the hospital Patient is full code. Patient acknowledges understanding and agreement with care plan. +30 minutes. Closely monitor the patient and adjust management as needed Plan of care reviewed with the patient and her nurse History Interval history: I seen and examined the patient at the bedside Patient's chart and medications reviewed Patient came back from the echo lab today Feels slightly better, Denies chest pain shortness of breath and lower extremity edema slightly improved Hospitalist Physical - Constitutional Vitals: Temp Pulse Resp BP Pulse Ox 97.9 F 72 16 117/72 93 09/05/21 08:34 09/05/21 08:34 09/05/21 08:34 09/05/21 08:34 09/05/21 08:34 General appearance: Present: no acute distress, well-nourished - EENT Eyes: Present: PERRL, EOM intact - Neck Neck: Present: supple, normal ROM - Respiratory Respiratory: bilateral: diminished, rales, negative: rhonchi, wheezing - Cardiovascular Rhythm: regular Heart Sounds: Present: S1 & S2 - Extremities Extremities: no ischemia, No edema - Abdominal General gastrointestinal: soft, non-tender, non-distended, normal bowel sounds - Integumentary Integumentary: Present: clear, warm - Psychiatric Psychiatric: appropriate mood/affect, cooperative - Neurologic Neurologic: CNII-XII intact, moves all extremities HEART Score - HEART Score EKG: Non-specific Age: > 65 Risk factors: 1-2 risk factors Troponin: Troponin T < 0.010 ng/mL (0.00-0.029) 09/03/21 17:33 Troponin: < normal limit - Critical Actions Critical Actions: 4-6 pts:12-16.6% risk of adverse cardiac event. Should be admitted Results - Labs CBC & Chem 7: 09/04/21 05:24 09/05/21 04:47 Labs: Laboratory Last Values WBC 4.8 K/mm3 (4.5-11.0) 09/04/21 05:24 RBC 5.57 M/mm3 (3.65-5.03) H 09/04/21 05:24 Hgb 15.6 gm/dl (10.1-14.3) H 09/04/21 05:24 Hct 48.6 % (30.3-42.9) H 09/04/21 05:24 MCV 87 fl (79-97) 09/04/21 05:24 MCH 28 pg (28-32) 09/04/21 05:24 MCHC 32 % (30-34) 09/04/21 05:24 RDW 19.9 % (13.2-15.2) H 09/04/21 05:24 Plt Count 125 K/mm3 (140-440) L 09/04/21 05:24 Lymph % (Auto) 38.1 % (13.4-35.0) H 09/04/21 05:24 [place] % (Auto) 14.4 % (0.0-7.3) H 09/04/21 05:24 Eos % (Auto) 3.8 % (0.0-4.3) 09/04/21 05:24 Baso % (Auto) 1.2 % (0.0-1.8) 09/04/21 05:24 Lymph # (Auto) 1.8 K/mm3 (1.2-5.4) 09/04/21 05:24 [place] # (Auto) 0.7 K/mm3 (0.0-0.8) 09/04/21 05:24 Eos # (Auto) 0.2 K/mm3 (0.0-0.4) 09/04/21 05:24 Baso # (Auto) 0.1 K/mm3 (0.0-0.1) 09/04/21 05:24 Seg Neutrophils % 42.5 % (40.0-70.0) 09/04/21 05:24 Seg Neutrophils # 2.0 K/mm3 (1.8-7.7) 09/04/21 05:24 PT 14.2 Sec. (12.2-14.9) 09/03/21 17:33 INR 0.99 (0.87-1.13) 09/03/21 17:33 Sodium 141 mmol/L (137-145) 09/05/21 04:47 Potassium 4.7 mmol/L (3.6-5.0) 09/05/21 04:47 Chloride 101.1 mmol/L (98-107) 09/05/21 04:47 Carbon Dioxide 28 mmol/L (22-30) 09/05/21 04:47 Anion Gap 17 mmol/L 09/05/21 04:47 BUN 27 mg/dL (7-17) H 09/05/21 04:47 Creatinine 1.3 mg/dL (0.6-1.2) H 09/05/21 04:47 Estimated GFR 49 ml/min 09/05/21 04:47 BUN/Creatinine Ratio 21 % 09/05/21 04:47 Glucose 66 mg/dL (65-100) 09/05/21 04:47 Calcium 8.4 mg/dL (8.4-10.2) 09/05/21 04:47 Magnesium 2.30 mg/dL (1.7-2.3) 09/03/21 17:33 Total Bilirubin 1.20 mg/dL (0.1-1.2) 09/04/21 05:24 AST 32 units/L (5-40) 09/04/21 05:24 ALT 21 units/L (7-56) 09/04/21 05:24 Alkaline Phosphatase 234 units/L (35-129) H 09/04/21 05:24 Total Creatine Kinase 201 units/L (30-135) H 09/03/21 17:33 CK-MB (CK-2) 3.5 ng/mL (0.0-4.0) 09/03/21 17:33 CK-MB (CK-2) Rel Index 1.7 (0-4) 09/03/21 17:33 Troponin T < 0.010 ng/mL (0.00-0.029) 09/03/21 17:33 NT-Pro-B Natriuret Pep 4285 pg/mL (0-900) H 09/03/21 17:33 Total Protein 6.9 g/dL (6.3-8.2) 09/04/21 05:24 Albumin 3.7 g/dL (3.9-5) L 09/04/21 05:24 Albumin/Globulin Ratio 1.2 % 09/04/21 05:24 TSH 26.150 mlU/mL (0.270-4.200) H 09/03/21 17:33 Free T4 0.10 ng/dL (0.76-1.46) L 09/03/21 17:33 Thakkar/IV: Voiding Method Toilet Active Medications - Current Medications Current Medications: Generic Name Dose Route Start Last Admin Trade Name Freq PRN Reason Stop Dose Admin Acetaminophen 650 mg 09/03/21 20:02 09/04/21 10:51 Acetaminophen 325 Mg Tab PO 650 mg Q4H PRN Administration Pain MILD(1-3)/Fever >100.5/EARLY Carvedilol 3.125 mg 09/05/21 12:00 Carvedilol 3.125 Mg Tab PO BID BISI Famotidine 20 mg 09/03/21 22:00 09/04/21 23:25 Famotidine 20 Mg Tab PO 20 mg BID BISI Administration Furosemide 40 mg 09/04/21 06:00 09/05/21 05:53 Furosemide 40 Mg/4 Ml Inj IV 40 mg 0600,1800 BISI Administration Heparin Sodium (Porcine) 5,000 unit 09/03/21 22:00 09/04/21 22:00 Heparin 5,000 Unit/1 Ml Vial SUB-Q 5,000 unit Q12HR BISI Administration Levothyroxine Sodium 100 mcg 09/04/21 08:00 09/05/21 05:53 Levothyroxine 100 Mcg Tab PO 100 mcg DAILY@0600 BISI Administration Losartan Potassium 50 mg 09/04/21 10:00 09/04/21 10:49 Losartan 50 Mg Tab PO 50 mg QDAY BISI Administration Metoclopramide HCl 10 mg 09/03/21 20:02 Metoclopramide 10 Mg/2 Ml Inj IV Q6H PRN Nausea And Vomiting Morphine Sulfate 2 mg 09/03/21 20:02 Morphine 2 Mg/1 Ml Inj IV Q4H PRN Pain, Moderate (4-6) Ondansetron HCl 4 mg 09/03/21 20:02 Ondansetron 4 Mg/2 Ml Inj IV Q8H PRN Nausea And Vomiting Oxycodone/Acetaminophen 1 tab 09/03/21 20:02 09/05/21 05:53 Oxycodone /Acetaminophen 5-325mg Tab PO 1 tab Q6H PRN Administration Pain, Moderate (4-6) Sodium Chloride 10 ml 09/03/21 22:00 09/04/21 23:26 Sodium Chloride 0.9% 10 Ml Flush Syringe IV 10 ml BID BISI Administration Sodium Chloride 10 ml 09/03/21 20:02 Sodium Chloride 0.9% 10 Ml Flush Syringe IV PRN PRN LINE FLUSH Spironolactone 25 mg 09/05/21 12:00 Spironolactone 25 Mg Tab PO QDAY [facility]
[2021-09-05] MEDS: SPIRONOLACTONE 25 MG TAB PO SCH (15:52)
[2021-09-05] MEDS: FAMOTIDINE 20 MG TAB PO SCH ×2 (15:53→21:54)
[2021-09-05] MEDS: LOSARTAN 50 MG TAB PO SCH (15:53)
[2021-09-05] MEDS: carvediloL 3.125 MG TAB PO SCH ×2 (15:54→21:54)
--- NOTE | 2021-09-05 19:29 | Progress Note ---
Assessment and Plan Assessment and plan: -- Acute systolic CHF (congestive heart failure) EF 20 to 25% Current Visit: Yes Status: Acute Echo [09/05/2021 ] EF 20 to 25% Patient has elevated BNP chest x-ray pulmonary edema Continue diuretics, low-dose beta-blockers Input output monitoring, low-sodium diet, Fluid restriction Cardiology following, recommend pulmonary consult --Right pleural effusion: New onset systolic congestive heart failure 20-25% EF Cardiology following, recommend pulmonary consult Discussed with on-call pulmonary Dr. Guan --History of HTN (hypertension) moderate control Current Visit: Yes Status: Chronic Continue losartan at 50 mg daily As needed oral hydralazine --H/o hyperthyroidism on methimazole Current Visit: Yes Status: Chronic However thyroid functions tests consistent with hypothyroidism Probably due to overcorrection Hold methimazole, closely monitor --Hypothyroidism Current Visit: Yes Status: Chronic Patient has history of hyperthyroidism on methimazole Probably overcorrection, will hold methimazole and closely monitor Patient needs to see finishing trimmer upon discharge --Thrombocytopenia; Unknown etiology, closely monitor platelets Monitor for any evidence of bleeding -- Hyponatremia mild Current Visit: Yes Status: Acute Present on admission, resolved Sodium 135 -139 Closely monitor electrolytes --DVT prophylaxis Current Visit: Yes Status: Acute Subcu heparin --Advance care planning /additional 30 minutes Current Visit: Yes Status: Acute Disease education conducted, care plan discussed, diagnosis discussed, prognosis discussed. Thyroid function tests discussed with the patient in detail Advised her to see finishing trimmer upon discharge Endocrinology service not available in the hospital Patient is full code. Patient acknowledges understanding and agreement with care plan. +30 minutes. Closely monitor the patient and adjust management as needed Plan of care reviewed with the patient and her nurse Hospitalist Physical - Constitutional Vitals: Temp Pulse Resp BP Pulse Ox 97.9 F 72 16 117/72 93 09/05/21 08:34 09/05/21 08:34 09/05/21 08:34 09/05/21 08:34 09/05/21 08:34 General appearance: Present: no acute distress, well-nourished HEART Score - HEART Score EKG: Non-specific Age: > 65 Risk factors: 1-2 risk factors Troponin: Troponin T < 0.010 ng/mL (0.00-0.029) 09/03/21 17:33 Troponin: < normal limit - Critical Actions Critical Actions: 4-6 pts:12-16.6% risk of adverse cardiac event. Should be admitted Results - Labs CBC & Chem 7: 09/04/21 05:24 09/05/21 04:47 Labs: Laboratory Last Values WBC 4.8 K/mm3 (4.5-11.0) 09/04/21 05:24 RBC 5.57 M/mm3 (3.65-5.03) H 09/04/21 05:24 Hgb 15.6 gm/dl (10.1-14.3) H 09/04/21 05:24 Hct 48.6 % (30.3-42.9) H 09/04/21 05:24 MCV 87 fl (79-97) 09/04/21 05:24 MCH 28 pg (28-32) 09/04/21 05:24 MCHC 32 % (30-34) 09/04/21 05:24 RDW 19.9 % (13.2-15.2) H 09/04/21 05:24 Plt Count 125 K/mm3 (140-440) L 09/04/21 05:24 Lymph % (Auto) 38.1 % (13.4-35.0) H 09/04/21 05:24 Preston % (Auto) 14.4 % (0.0-7.3) H 09/04/21 05:24 Eos % (Auto) 3.8 % (0.0-4.3) 09/04/21 05:24 Baso % (Auto) 1.2 % (0.0-1.8) 09/04/21 05:24 Lymph # (Auto) 1.8 K/mm3 (1.2-5.4) 09/04/21 05:24 Preston # (Auto) 0.7 K/mm3 (0.0-0.8) 09/04/21 05:24 Eos # (Auto) 0.2 K/mm3 (0.0-0.4) 09/04/21 05:24 Baso # (Auto) 0.1 K/mm3 (0.0-0.1) 09/04/21 05:24 Seg Neutrophils % 42.5 % (40.0-70.0) 09/04/21 05:24 Seg Neutrophils # 2.0 K/mm3 (1.8-7.7) 09/04/21 05:24 PT 14.2 Sec. (12.2-14.9) 09/03/21 17:33 INR 0.99 (0.87-1.13) 09/03/21 17:33 Sodium 141 mmol/L (137-145) 09/05/21 04:47 Potassium 4.7 mmol/L (3.6-5.0) 09/05/21 04:47 Chloride 101.1 mmol/L (98-107) 09/05/21 04:47 Carbon Dioxide 28 mmol/L (22-30) 09/05/21 04:47 Anion Gap 17 mmol/L 09/05/21 04:47 BUN 27 mg/dL (7-17) H 09/05/21 04:47 Creatinine 1.3 mg/dL (0.6-1.2) H 09/05/21 04:47 Estimated GFR 49 ml/min 09/05/21 04:47 BUN/Creatinine Ratio 21 % 09/05/21 04:47 Glucose 66 mg/dL (65-100) 09/05/21 04:47 Calcium 8.4 mg/dL (8.4-10.2) 09/05/21 04:47 Magnesium 2.30 mg/dL (1.7-2.3) 09/03/21 17:33 Total Bilirubin 1.20 mg/dL (0.1-1.2) 09/04/21 05:24 AST 32 units/L (5-40) 09/04/21 05:24 ALT 21 units/L (7-56) 09/04/21 05:24 Alkaline Phosphatase 234 units/L (35-129) H 09/04/21 05:24 Total Creatine Kinase 201 units/L (30-135) H 09/03/21 17:33 CK-MB (CK-2) 3.5 ng/mL (0.0-4.0) 09/03/21 17:33 CK-MB (CK-2) Rel Index 1.7 (0-4) 09/03/21 17:33 Troponin T < 0.010 ng/mL (0.00-0.029) 09/03/21 17:33 NT-Pro-B Natriuret Pep 4285 pg/mL (0-900) H 09/03/21 17:33 Total Protein 6.9 g/dL (6.3-8.2) 09/04/21 05:24 Albumin 3.7 g/dL (3.9-5) L 09/04/21 05:24 Albumin/Globulin Ratio 1.2 % 09/04/21 05:24 TSH 26.150 mlU/mL (0.270-4.200) H 09/03/21 17:33 Free T4 0.10 ng/dL (0.76-1.46) L 09/03/21 17:33 Thakkar/IV: Voiding Method Toilet Active Medications - Current Medications Current Medications: Generic Name Dose Route Start Last Admin Trade Name Freq PRN Reason Stop Dose Admin Acetaminophen 650 mg 09/03/21 20:02 09/04/21 10:51 Acetaminophen 325 Mg Tab PO 650 mg Q4H PRN Administration Pain MILD(1-3)/Fever >100.5/EARLY Carvedilol 3.125 mg 09/05/21 12:00 09/05/21 15:54 Carvedilol 3.125 Mg Tab PO 3.125 mg BID BISI Administration Famotidine 20 mg 09/03/21 22:00 09/05/21 15:53 Famotidine 20 Mg Tab PO 20 mg BID BISI Administration Furosemide 40 mg 09/04/21 06:00 09/05/21 05:53 Furosemide 40 Mg/4 Ml Inj IV 40 mg 0600,1800 BISI Administration Heparin Sodium (Porcine) 5,000 unit 09/03/21 22:00 09/04/21 22:00 Heparin 5,000 Unit/1 Ml Vial SUB-Q 5,000 unit Q12HR BISI Administration Levothyroxine Sodium 100 mcg 09/04/21 08:00 09/05/21 05:53 Levothyroxine 100 Mcg Tab PO 100 mcg DAILY@0600 BISI Administration Losartan Potassium 50 mg 09/04/21 10:00 09/05/21 15:53 Losartan 50 Mg Tab PO 50 mg QDAY BISI Administration Metoclopramide HCl 10 mg 09/03/21 20:02 Metoclopramide 10 Mg/2 Ml Inj IV Q6H PRN Nausea And Vomiting Morphine Sulfate 2 mg 09/03/21 20:02 Morphine 2 Mg/1 Ml Inj IV Q4H PRN Pain, Moderate (4-6) Ondansetron HCl 4 mg 09/03/21 20:02 Ondansetron 4 Mg/2 Ml Inj IV Q8H PRN Nausea And Vomiting Oxycodone/Acetaminophen 1 tab 09/03/21 20:02 09/05/21 05:53 Oxycodone /Acetaminophen 5-325mg Tab PO 1 tab Q6H PRN Administration Pain, Moderate (4-6) Sodium Chloride 10 ml 09/03/21 22:00 09/05/21 16:30 Sodium Chloride 0.9% 10 Ml Flush Syringe IV 10 ml BID BISI Administration Sodium Chloride 10 ml 09/03/21 20:02 Sodium Chloride 0.9% 10 Ml Flush Syringe IV PRN PRN LINE FLUSH Spironolactone 25 mg 09/05/21 12:00 09/05/21 15:52 Spironolactone 25 Mg Tab PO 25 mg QDAY BISI Administration
[2021-09-06 06:13] LABS: Calcium 8.3 mg/dL (8.4-10.2)
[2021-09-06] MEDS: LEVOTHYROXINE 100 MCG TAB PO SCH (06:20)
[2021-09-06] MEDS: FUROSEMIDE 40 MG/4 ML INJ IV SCH (06:20)
--- NOTE | 2021-09-06 09:35 | Consultation ---
History of Present Illness Consult date: 09/06/21 Requesting physician: KIKE KEENAN Reason for consult: pleural effusion History of present illness: 66 y/o female admitted with progressive dyspnea on exertion, orthopnea and bilateral lower ext edema. Worked up for heart failure and found to have an EF of 20-25%. Patient is a smoker, smokes 1pack per week. Cardiology consulted and CXR shows right sided pleural effusion. Cardiology requested pulmonary consult for pleural effusion. Patient has had 2 other CXR's [facility] file. Most recent was July of this year which showed a right sided pleural effusion at that time. Patient is not currently on BID lasix as well as daily spironolactone with good uop and daily net negative state. Past History Past Medical History: hypertension, other (Hyperthyroid disease) Medications and Allergies Allergies Allergy/AdvReac Type Severity Reaction Status Date / Time No Known Allergies Allergy Verified 09/03/21 20:07 Home Medications Medication Instructions Recorded Confirmed Last Taken Type Triamterene-Hctz 37.5-25 mg Cp 1 tab PO QDAY 09/04/21 09/04/21 Unknown History methIMAzole [Methimazole] 1 tab PO DAILY 09/04/21 09/04/21 Unknown History Active Meds: Active Medications Acetaminophen (Acetaminophen 325 Mg Tab) 650 mg PO Q4H PRN PRN Reason: Pain MILD(1-3)/Fever >100.5/EARLY Last Admin: 09/04/21 10:51 Dose: 650 mg Carvedilol (Carvedilol 3.125 Mg Tab) 3.125 mg PO BID [facility] Last Admin: 09/05/21 21:54 Dose: 3.125 mg Famotidine (Famotidine 20 Mg Tab) 20 mg PO BID [facility] Last Admin: 09/05/21 21:54 Dose: 20 mg Furosemide (Furosemide 40 Mg/4 Ml Inj) 40 mg IV 0600,1800 [facility] Last Admin: 09/06/21 06:20 Dose: 40 mg Heparin Sodium (Porcine) (Heparin 5,000 Unit/1 Ml Vial) 5,000 unit SUB-Q Q12HR [facility] Last Admin: 09/05/21 21:54 Dose: 5,000 unit Levothyroxine Sodium (Levothyroxine 100 Mcg Tab) 100 mcg PO DAILY@0600 [facility] Last Admin: 09/06/21 06:20 Dose: 100 mcg Losartan Potassium (Losartan 50 Mg Tab) 50 mg PO QDAY [facility] Last Admin: 09/05/21 15:53 Dose: 50 mg Metoclopramide HCl (Metoclopramide 10 Mg/2 Ml Inj) 10 mg IV Q6H PRN PRN Reason: Nausea And Vomiting Morphine Sulfate (Morphine 2 Mg/1 Ml Inj) 2 mg IV Q4H PRN PRN Reason: Pain, Moderate (4-6) Ondansetron HCl (Ondansetron 4 Mg/2 Ml Inj) 4 mg IV Q8H PRN PRN Reason: Nausea And Vomiting Oxycodone/Acetaminophen (Oxycodone /Acetaminophen 5-325mg Tab) 1 tab PO Q6H PRN PRN Reason: Pain, Moderate (4-6) Last Admin: 09/05/21 21:57 Dose: 1 tab Sodium Chloride (Sodium Chloride 0.9% 10 Ml Flush Syringe) 10 ml IV BID [facility] Last Admin: 09/05/21 22:00 Dose: 10 ml Sodium Chloride (Sodium Chloride 0.9% 10 Ml Flush Syringe) 10 ml IV PRN PRN PRN Reason: LINE FLUSH Spironolactone (Spironolactone 25 Mg Tab) 25 mg PO QDAY [facility] Last Admin: 09/05/21 15:52 Dose: 25 mg Review of Systems All systems: negative Physical Examination Vital signs: Vital Signs Temp Pulse Resp BP Pulse Ox 98.1 F 92 H 20 147/99 97 09/03/21 16:06 09/03/21 16:06 09/03/21 16:06 09/03/21 16:06 09/03/21 16:06 General appearance: no acute distress, alert Eyes: non-icteric ENT: oropharynx moist Neck: supple Ascultation: Right: diminished breath sounds (base), rales (base), Left: clear Percussion: Bilateral: not dull Tactile fremitus: Bilateral: normal Results - Laboratory Findings CBC and BMP: 09/04/21 05:24 09/06/21 05:02 PT/INR, D-dimer PT 14.2 Sec. (12.2-14.9) 09/03/21 17:33 INR 0.99 (0.87-1.13) 09/03/21 17:33 Abnormal lab findings: Abnormal Labs 02/09/03/21 09/03/21 17:33 17:33 17:33 RBC 5.57 H Hgb 15.5 H Hct 48.7 H RDW 20.2 H Plt Count 130 L Lymph % (Auto) 36.9 H Day % (Auto) 7.9 H Sodium 135 L Carbon Dioxide 21 L BUN 21 H Creatinine Glucose Calcium Alkaline Phosphatase 244 H Total Creatine Kinase 201 H NT-Pro-B Natriuret Pep 4285 H Albumin TSH 26.150 H Free T4 0.10 L 09/04/21 09/04/21 09/05/21 05:24 05:24 04:47 RBC 5.57 H Hgb 15.6 H Hct 48.6 H RDW 19.9 H Plt Count 125 L Lymph % (Auto) 38.1 H Day % (Auto) 14.4 H Sodium Carbon Dioxide BUN 23 H 27 H Creatinine 1.3 H Glucose Calcium Alkaline Phosphatase 234 H Total Creatine Kinase NT-Pro-B Natriuret Pep Albumin 3.7 L TSH Free T4 09/06/21 05:02 RBC Hgb Hct RDW Plt Count Lymph % (Auto) Day % (Auto) Sodium Carbon Dioxide BUN 28 H Creatinine Glucose 102 H Calcium 8.3 L Alkaline Phosphatase Total Creatine Kinase NT-Pro-B Natriuret Pep Albumin TSH Free T4 - Diagnostic Findings Chest x-ray: image reviewed (From 4 days shows right side pleural effusion with cardiomegaly) Assessment and Plan 66 y/o female with CHF, likely not new onset given that right sided pleural effusion has been present since at least July of this year, with right sided pleural effusion and tobacco abuse 1. Smoking cessation 2. Without weight loss, hemoptysis, prior malignancy and no other B symptoms, cancer is low on the differential for this effusion. Suggest repeating CXR and seeing of diuresis has helped with quantity of fluid. If the same size, then would consider therapeutic and diagnostic ultrasound if large enough. Compared to imaging from July, effusion has improved 3. Majority of pleural effusion in systolic heart failure are bilateral with the second most common presentation being isolated RIGHT sided effusion. Very rarely if at all will heart failure cause an isolated left sided effusion. In this instance, given history, the effusion is most likely related to heart failure. 4. No objection to discharge pulm segura. She will follow up with me and I can repeat CXR at that time. No need to repeat now, patient is on room air and stable.
--- NOTE | 2021-09-06 11:14 | Progress Note ---
Assessment and Plan - Patient Problems (1) Dilated cardiomyopathy Current Visit: Yes Status: Acute Plan to address problem: New finding of a severe four-chamber dilated cardiomyopathy, left ventricular ejection fraction 20 to 25%. Patient has been placed on guideline directed medical therapy with losartan, carvedilol, furosemide and spironolactone. Stable for cardiac discharge on medical therapy, further follow-up and management in the outpatient setting. (2) Non-pitting edema Current Visit: Yes Status: Acute Plan to address problem: Patient's echocardiogram shows a four-chamber dilated cardiomyopathy. Edema is resolving on diuretic therapy. We will continue guideline directed medical therapy for systolic left ventricular dysfunction. (3) Pleural effusion, right Current Visit: Yes Status: Acute Plan to address problem: Patient has a right pleural effusion, etiology is uncertain, may possibly be cardiogenic although unilateral. Patient has been seen by pulmonary who recommend conservative management and outpatient follow-up. Subjective Date of service: 09/06/21 Principal diagnosis: Edema Interval history: Patient looks and feels better, no new cardiac complaints. Her lower extremity edema is resolving. Objective Vital Signs Temp Pulse Resp BP BP Pulse Ox 09/06/21 08:50 95.7 F L 89 18 114/72 96 09/06/21 03:21 97.8 F 59 L 12 104/63 94 09/05/21 23:19 98.0 F 55 L 14 104/62 93 09/05/21 22:00 98 09/05/21 21:54 105/63 09/05/21 19:22 98.0 F 62 16 105/63 94 09/05/21 16:25 98.4 F 69 20 117/73 95 - Physical Examination General: No Apparent Distress HEENT: Positive: PERRL Neck: Positive: neck supple Cardiac: Positive: Reg Rate and Rhythm Lungs: Positive: Decreased Breath Sounds Neuro: Positive: Grossly Intact Abdomen: Positive: Soft Skin: Positive: Clear Extremities: Present: edema (Trace to 1+) - Labs and Meds Comprehensive Metabolic Panel 09/06/21 Range/Units 05:02 Sodium 139 (137-145) mmol/L Potassium 4.2 (3.6-5.0) mmol/L Chloride 98.6 (98-107) mmol/L Carbon Dioxide 28 (22-30) mmol/L BUN 28 H (7-17) mg/dL Creatinine 1.2 (0.6-1.2) mg/dL Glucose 102 H (65-100) mg/dL Calcium 8.3 L (8.4-10.2) mg/dL - Imaging and Cardiology EKG: report reviewed
[2021-09-06] MEDS: SPIRONOLACTONE 25 MG TAB PO SCH (12:05)
[2021-09-06] MEDS: FAMOTIDINE 20 MG TAB PO SCH (12:05)
[2021-09-06] MEDS: carvediloL 3.125 MG TAB PO SCH (12:05)
[2021-09-06] MEDS: HEPARIN 5,000 UNIT/1 ML VIAL SUB-Q SCH (12:06)
[2021-09-06] MEDS: LOSARTAN 50 MG TAB PO SCH (12:06)
--- NOTE | 2021-09-06 15:21 | Discharge Summary ---
Providers - Providers Date of Admission: 09/03/21 20:03 Date of discharge: 09/06/21 Attending physician: KIKE KEENAN 09/03/21 20:02 Consult to Physician [CONS] Routine Comment: Consulting Provider: KING GREEN Physician Instructions: Reason For Exam: CHF 09/05/21 12:21 Consult to Physician [CONS] Routine Comment: Consulting Provider: JENNIFER GUAN Physician Instructions: rec by cardioloy Reason For Exam: Rt pleural effusion/new Ac.syst [id number]% Primary care physician: DANIELITO LINDSAY Hospitalization Condition: Stable Hospital course: -- Acute systolic CHF (congestive heart failure) EF 20 to 25% Current Visit: Yes Status: Acute Echo [09/05/2021 ] EF 20 to 25% Patient has elevated BNP chest x-ray pulmonary edema Continue diuretics, low-dose beta-blockers Input output monitoring, low-sodium diet, Fluid restriction Cardiology following, recommend pulmonary consult --Right pleural effusion: New onset systolic congestive heart failure 20-25% EF Cardiology following, recommend pulmonary consult Discussed with on-call pulmonary Dr. Guan --History of HTN (hypertension) moderate control Current Visit: Yes Status: Chronic Continue losartan at 50 mg daily As needed oral hydralazine --H/o hyperthyroidism on methimazole Current Visit: Yes Status: Chronic However thyroid functions tests consistent with hypothyroidism Probably due to overcorrection Hold methimazole, closely monitor --Hypothyroidism Current Visit: Yes Status: Chronic Patient has history of hyperthyroidism on methimazole Probably overcorrection, will hold methimazole and closely monitor Patient needs to see general doc upon discharge --Thrombocytopenia; Unknown etiology, closely monitor platelets Monitor for any evidence of bleeding -- Hyponatremia mild Current Visit: Yes Status: Acute Present on admission, resolved Sodium 135 -139 Closely monitor electrolytes Disposition: HOME / SELF CARE / HOMELESS Final Discharge Diagnosis (Prints w/discharge instructions): Acute systolic congestive heart failure. Left ventricle ejection fraction 20 to 25%. New onset dilated cardiomyopathy. Hypertension. History of hypothyroidism on methimazole. Hypothyroidism[during this admission]. Thrombocytopenia. Hyponatremia/resolved Time spent for discharge: 40 min Core Measure Documentation - Palliative Care Palliative Care/ Comfort Measures: Not Applicable - Core Measures Any of the following diagnoses?: heart failure - Heart Failure Discharge Requirements ARIES/ARB for LVSD if EF <40%: Yes Beta donald at discharge: Yes Exam - Constitutional Vitals: Temp Pulse Resp BP Pulse Ox 87.9 F L 89 18 115/63 96 09/06/21 10:25 09/06/21 08:50 09/06/21 10:25 09/06/21 10:25 09/06/21 08:50 General appearance: Present: no acute distress, well-nourished - EENT Eyes: Present: PERRL, EOM intact - Neck Neck: Present: supple, normal ROM - Respiratory Respiratory effort: normal Respiratory: bilateral: diminished, rales, negative: rhonchi, wheezing - Cardiovascular Rhythm: regular Heart Sounds: Present: S1 & S2 - Extremities Extremities: no ischemia Extremity abnormal: edema - Abdominal General gastrointestinal: Present: soft, non-tender, non-distended, normal bowel sounds - Integumentary Integumentary: Present: clear, warm - Musculoskeletal Musculoskeletal: strength equal bilaterally, generalized weakness - Psychiatric Psychiatric: appropriate mood/affect, cooperative - Neurologic Neurologic: moves all extremities Plan Activity: advance as tolerated Diet: low salt, other (Cardiac diet) Additional Instructions: Ambulate as tolerated. Elevate the limbs while resting to reduce the edema/swelling. Advised to see primary care physician in 3 to 5 days. Advised to follow cardiology per schedule. Advised to see general doc Dr. Kelley in 1 week. If you have worsening symptoms contact MD or go to the nearest emergency room as needed. Advised low salt diet and fluid restriction Follow up with: DANIELITO LINDSAY MD [Primary Care Provider] - 3-5 Days KING GREEN MD [Staff Physician] - 10 Days TRENT KELLEY MD [Staff Physician] - 7 Days Prescriptions: Spironolactone [Aldactone] 25 mg PO QDAY #30 tablet carvediloL [Coreg] 3.125 mg PO BID #60 tablet Losartan [Cozaar] 50 mg PO QDAY #30 tablet Furosemide [Lasix TAB] 40 mg PO QDAY #30 tablet Famotidine [Pepcid] 20 mg PO BID #20 tablet Levothyroxine [Synthroid] 100 mcg PO DAILY@0600 #30 tablet
[2021-09-06 18:38] VITALS: BP 93/51
== END 2021-09-06 17:30 | disposition home or self-care (01) | DRG 291 ==
LOC: ED 15:56 → 4A 20:03
PROVIDERS: ADMIT Internal Medicine; ATTEND Internal Medicine
DX: I11.0 Hypertensive heart disease with heart failure (principal); I50.43 Acute on chronic combined systolic (congestive) and diastolic (congestive) heart failure; E87.1 Hypo-osmolality and hyponatremia; J91.8 Pleural effusion in other conditions classified elsewhere; E03.9 Hypothyroidism, unspecified; D69.6 Thrombocytopenia, unspecified; F17.200 Nicotine dependence, unspecified, uncomplicated; I42.0 Dilated cardiomyopathy
CPT/HCPCS: 36415; 71046; 80048; 80053; 82550; 82553; 83735; 83880; 84439; 84443; 84484; 85025; 85610; 93005; 93010; 93306; 99406; G0378; C8929; J1644; J1940